=== PATIENT | female | born 1995 | race Caucasian/White ===

== ENCOUNTER 2020-11-27 04:35 | Inpatient (IN) | payer BC ==
[~2020-11-27] VITALS: Ht 170.2 cm; Wt 101.8 kg
[2020-11-27] MEDS: LACTATED RINGERS 1,000 ML IV SCH ×4 (02:20→19:30)
[2020-11-27] MEDS ORDERED: OXYTOCIN 30U/ 0.9% NaCL 500ML 500 ML IV ONE (05:00)
[2020-11-27] MEDS ORDERED: TERBUTALINE 1 MG/ML, 1ML SQ PRN (05:00)
[2020-11-27] MEDS ORDERED: OXYTOCIN 30U/ 0.9% NaCL 500ML 500 ML IV PRN (05:00)
[2020-11-27] MEDS ORDERED: ONDANSETRON 2MG/ML, 2ML IVPush PRN (05:00)
[2020-11-27] MEDS ORDERED: FENTANYL PF 100 MCG/2ML IV PRN (05:00)
[2020-11-27] MEDS ORDERED: PENICILLIN GK 5,000,000 UNITS in DEXTROSE 5% 100 ML IVPB ONE (05:00)
[2020-11-27] MEDS ORDERED: TERBUTALINE 1 MG/ML, 1ML IVPush PRN (05:00)
[2020-11-27] MEDS ORDERED: FENTANYL PF 100 MCG/2ML IVPush PRN (05:00)
[2020-11-27] MEDS ORDERED: OXYTOCIN 30U/ 0.9% NaCL 500ML 500 ML ONE (05:01)
[2020-11-27] MEDS: PENICILLIN GK 2,500,000 UNITS in DEXTROSE 5% 100 ML IVPB SCH ×3 (05:23→17:32)
[2020-11-27 05:27] LABS: BASOPHILS % (AUTO) 1 % (0-1); EOSINOPHILS % (AUTO) 1 % (1-7); LYMPHOCYTES % (AUTO) 17 % (22-44); MEAN CORPUSCULAR HEMOGLOBIN 26.7 pg (27.0-34.8); MEAN PLATELET VOLUME 8.4 fL (7.4-10.4); MONOCYTES % (AUTO) 7 % (2-9); NEUTROPHILS % (AUTO) 74 % (42-75); PLATELET COUNT 244 x10^3/uL (130-400); RED BLOOD COUNT 4.58 x10^6/uL (3.82-5.3); RED CELL DISTRIBUTION WIDTH 14.8 % (9.6-15.2)
[2020-11-27 05:30] VITALS: BP 127/86
[2020-11-27] MEDS ORDERED: PLEASE ENTER ALLERGIES MC SCH (05:30)
[2020-11-27] MEDS ORDERED: NEWBORN KIT ONE (05:41)
[2020-11-27] MEDS ORDERED: MISOPROSTOL 200 MCG TABLET ONE (07:10)
[2020-11-27] MEDS ORDERED: LIDOCAINE 1%, 20ML ONE (07:11)
[2020-11-27 09:16] VITALS: BP 124/72
[2020-11-27] MEDS: LACTATED RINGERS 1,000 ML IVBOLUS PRN ×3 (14:17→16:17)
[2020-11-27] MEDS ORDERED: LACTATED RINGERS 1,000 ML INTUTE SCH (15:00)
[2020-11-27] MEDS ORDERED: LACTATED RINGERS 1,000 ML INTUTE PRN (15:00)
[2020-11-27] MEDS ORDERED: FENTANYL/BUPIV./NS/PF 250 ML EPIDCONT ONE (15:46)
[2020-11-27] MEDS ORDERED: BUPIVACAINE 0.25% ONE ×2 (15:46→16:54)
[2020-11-27] MEDS ORDERED: FENTANYL/BUPIV./NS/PF 250 ML EPIDCONT SCH (16:30)
[2020-11-27] MEDS ORDERED: LACTATED RINGERS 1,000 ML IV SCH (16:30)
[2020-11-27] MEDS ORDERED: EPHEDRINE 50 MG/ML, 1ML IVPush PRN (16:30)
[2020-11-27] MEDS ORDERED: METOCLOPRAMIDE 5 MG/ML, 2ML ONE (19:10)
[2020-11-27] MEDS ORDERED: SODIUM CITRATE/CITRIC ACID 15 ML UDC ONE (19:10)
[2020-11-27] MEDS ORDERED: MEPERIDINE/PF 50 MG/ML IM PRN (19:30)
[2020-11-27] MEDS: OXYTOCIN 30U/ 0.9% NaCL 500ML 500 ML IV SCH (19:30)
[2020-11-27] MEDS ORDERED: METOCLOPRAMIDE 5 MG/ML, 2ML IV PRN (19:30)
[2020-11-27] MEDS ORDERED: MISOPROSTOL 200 MCG TABLET PR PRN (19:30)
[2020-11-27] MEDS ORDERED: ACETAMINOPHEN 325 MG TABLET PO PRN (19:30)
[2020-11-27] MEDS ORDERED: ONDANSETRON 2MG/ML, 2ML IV PRN (19:30)
[2020-11-27] MEDS: KETOROLAC 30 MG/1 ML IV SCH (19:30)
[2020-11-27] MEDS ORDERED: CEFAZOLIN 1,000 MG ONE (19:37)
[2020-11-27] MEDS ORDERED: FENTANYL PF 100 MCG/2ML ONE (19:37)
[2020-11-27] MEDS ORDERED: ONDANSETRON 2MG/ML, 2ML ONE (19:37)
[2020-11-27] MEDS ORDERED: HYDROmorphone 2 MG/ML, 1ML ONE (19:37)
[2020-11-27] MEDS ORDERED: OXYTOCIN 10 UNITS/ML, 1ML ONE (19:37)
[2020-11-27] MEDS ORDERED: LIDOCAINE/MPF 2%-EPI 1:200K, 20 ML ONE (19:42)
[2020-11-27] MEDS ORDERED: PROPOFOL 10 MG/ML, 20ML ONE (20:01)
[2020-11-27] MEDS ORDERED: FENTANYL PF 250 MCG/5ML ONE (20:15)
[2020-11-27] MEDS ORDERED: KETOROLAC 30 MG/1 ML ONE (20:21)
[2020-11-27] MEDS ORDERED: SODIUM CITRATE/CITRIC ACID 30 ML UDC PO ONE (21:00)
[2020-11-27 22:35] VITALS: BP 115/69
[2020-11-28 01:02] VITALS: BP 115/70
[2020-11-28] MEDS: KETOROLAC 30 MG/1 ML IV SCH ×4 (02:19→20:36)
[2020-11-28] MEDS: HYDROcodone/APAP 5/325 TABLET PO PRN ×5 (02:55→20:04)
[2020-11-28] MEDS: LACTATED RINGERS 1,000 ML IV SCH ×5 (03:30→19:30)
[2020-11-28 03:40] VITALS: BP 113/68
[2020-11-28 04:53] LABS: MEAN CORPUSCULAR HEMOGLOBIN 27.2 pg (27.0-34.8); MEAN CORPUSCULAR HGB CONC 32.8 g/dL (32.4-35.8); MEAN PLATELET VOLUME 9.1 fL (7.4-10.4); PLATELET COUNT 273 x10^3/uL (130-400); RED BLOOD COUNT 3.97 x10^6/uL (3.82-5.3); RED CELL DISTRIBUTION WIDTH 15.5 % (9.6-15.2)
[2020-11-28 05:30] LABS: <PLATELET ESTIMATE> ADEQUATE; <RBC MORPHOLOGY> NORMAL; BANDS%(MANUAL) 11 % (0-7); EOS#(MANUAL) 0.63 x10^3/uL (0.0-0.4); EOS% (MANUAL) 3 % (1-7); GIANT PLATELETS 1+; LYMPH#(MANUAL) 2.72 x10^3/uL (1-3.4); LYMPHS% (MANUAL) 13 % (22-44); MONOS#(MANUAL) 1.05 x10^3/uL (0.3-2.7); MONOS% (MANUAL) 5 % (2-9); SEG#(MANUAL) 14.21 x10^3/uL (1.8-6.8); SEGS% (MANUAL) 68 % (42-75)
[2020-11-28] MEDS: OXYTOCIN 30U/ 0.9% NaCL 500ML 500 ML IV SCH ×2 (05:30→15:30)
[2020-11-28 07:00] VITALS: BP 102/70
[2020-11-28] MEDS: DOCUSATE 100 MG CAPSULE PO PRN ×2 (08:32→20:04)
[2020-11-28] MEDS: PRENATAL VIT/IRON/FA 1 EACH TABLET PO SCH (08:32)
[2020-11-28] MEDS: SIMETHICONE 80 MG CHEW TAB PO PRN (08:46)
[2020-11-28 12:00] VITALS: BP 107/71
[2020-11-28 16:30] VITALS: BP 119/77
[2020-11-28 19:15] VITALS: BP 111/73
[2020-11-29] MEDS: LACTATED RINGERS 1,000 ML IV SCH ×6 (01:30→21:30)
[2020-11-29] MEDS: OXYTOCIN 30U/ 0.9% NaCL 500ML 500 ML IV SCH ×3 (01:30→21:30)
[2020-11-29] MEDS: HYDROcodone/APAP 5/325 TABLET PO PRN ×5 (01:37→21:59)
[2020-11-29] MEDS: KETOROLAC 30 MG/1 ML IV SCH ×3 (02:42→08:17)
[2020-11-29 07:00] VITALS: BP 111/73
[2020-11-29] MEDS: DOCUSATE 100 MG CAPSULE PO PRN ×2 (08:02→20:08)
[2020-11-29] MEDS: PRENATAL VIT/IRON/FA 1 EACH TABLET PO SCH (08:02)
[2020-11-29] MEDS: IBUPROFEN 600 MG TABLET PO PRN ×3 (08:12→20:07)
[2020-11-29] MEDS ORDERED: MEASLES,MUMPS&RUBELLA VACC/PF 0.5 ML SQ-VACC ONE (17:30)
[2020-11-29 20:00] VITALS: BP 109/72
[2020-11-29] MEDS: SIMETHICONE 80 MG CHEW TAB PO PRN (20:07)
[2020-11-30] MEDS: SIMETHICONE 80 MG CHEW TAB PO PRN ×2 (02:07→08:21)
[2020-11-30] MEDS: IBUPROFEN 600 MG TABLET PO PRN ×3 (02:07→14:51)
[2020-11-30] MEDS: HYDROcodone/APAP 5/325 TABLET PO PRN ×4 (02:07→14:51)
[2020-11-30] MEDS: LACTATED RINGERS 1,000 ML IV SCH (03:30)
[2020-11-30 07:30] VITALS: BP 110/75
[2020-11-30] MEDS: DOCUSATE 100 MG CAPSULE PO PRN (08:21)
[2020-11-30] MEDS: PRENATAL VIT/IRON/FA 1 EACH TABLET PO SCH (08:21)
[2020-11-30] MEDS ORDERED: DOCU-131 PO (13:57)
[2020-11-30] MEDS ORDERED: HYDR-2214 PO (14:00)
[2020-11-30] MEDS ORDERED: IBUP-1222 PO (14:00)
== END 2020-11-30 18:30 | disposition home or self-care (01) | DRG 788 ==
LOC: LDOP 04:35 → LDIP 04:58 → 2NW 22:22
PROVIDERS: ADMIT Obstetrics & Gynecology; ATTEND Obstetrics & Gynecology
PROC: 10D00Z1 Extraction of Products of Conception, Low, Open Approach (ICD-10-PCS; principal; 2020-11-27)
DX: O62.0 Primary inadequate contractions (principal); Z20.822 Contact with and (suspected) exposure to COVID-19; O76 Abnormality in fetal heart rate and rhythm complicating labor and delivery; O99.824 Streptococcus B carrier state complicating childbirth; Z3A.37 37 weeks gestation of pregnancy; Z37.0 Single live birth
CPT/HCPCS: 36415; 76815; 85025; 86592; 86850; 86900; 87635; 88305; 90707; G0378; J0690; J1170; J1885; J2405; J2540; J2704; J3010; J2590; J2765; J7120